=== PATIENT | female | born 1940 | race Caucasian/White ===

== ENCOUNTER → 2018-05-20 | Outpatient (CLI) | payer MEDICARE ==
[~2018-05-20] MED LIST: AMLODIPINE BESYL5 MG PO; BENAZEPRIL10 MG PO; LOVASTATIN20 MG PO; NEURONTIN300 MG PO; NEURONTIN800 MG PO; PRILOSEC20 M1 PO; ZITHROMAX250 MG PO
== END | disposition home or self-care (01) ==
DX: M25.562 Pain in left knee (principal)

== ENCOUNTER → 2018-08-05 | Outpatient (CLI) | payer MEDICARE | END | disposition home or self-care (01) | LOC: ORTHO 02:18 | DX: M25.562 Pain in left knee (principal) ==

== ENCOUNTER 2019-04-19 21:50 | Emergency (ER) | payer MEDICARE ==
[~2019-04-19] VITALS: Wt 75.7 kg
[2019-04-19 21:51] VITALS: BP 209/97
[2019-04-19] MEDS ORDERED: AMOXICILLIN500 M2 PO (23:24)
== END 2019-04-19 23:34 | disposition home or self-care (01) ==
LOC: ED 21:50
DX: S50.861A Insect bite (nonvenomous) of right forearm, initial encounter (principal); Z98.890 Other specified postprocedural states; Z79.899 Other long term (current) drug therapy; Z88.6 Allergy status to analgesic agent; W57.XXXA Bitten or stung by nonvenomous insect and other nonvenomous arthropods, initial encounter; Y93.89 Activity, other specified; Y92.89 Other specified places as the place of occurrence of the external cause; Y99.9 Unspecified external cause status

== ENCOUNTER → 2019-05-13 | Day surgery (SDC) | payer MEDICARE ==
[~2019-05-13] VITALS: Ht 152.4 cm; Wt 76.2 kg
[~2019-05-13] MED LIST changes: +AMOXICILLIN500 M2 PO; +B121000 MCG/1 IM; +METFORMIN HYDR500 MG PO; +NORCO 5-325 TA1 EACH PO
[2019-05-13 09:59] VITALS: BP 106/49
[2019-05-13 10:23] VITALS: BP 122/59
[2019-05-13 10:38] VITALS: BP 143/60
[2019-05-13 10:53] VITALS: BP 150/52
== END | disposition home or self-care (01) ==
LOC: SDC 05-12 10:15
DX: C49.11 Malignant neoplasm of connective and soft tissue of right upper limb, including shoulder (principal); L98.8 Other specified disorders of the skin and subcutaneous tissue; I10 Essential (primary) hypertension; E11.9 Type 2 diabetes mellitus without complications; E78.5 Hyperlipidemia, unspecified; Z98.890 Other specified postprocedural states; Z79.899 Other long term (current) drug therapy; Z79.82 Long term (current) use of aspirin; Z82.49 Family history of ischemic heart disease and other diseases of the circulatory system; Z80.8 Family history of malignant neoplasm of other organs or systems

== ENCOUNTER → 2020-08-19 | Outpatient (CLI) | payer MEDICARE | END | disposition home or self-care (01) | LOC: RAD 08:40 | PROVIDERS: ATTEND Nurse Practitioner Family | DX: R05 Cough (principal); R10.13 Epigastric pain; E11.9 Type 2 diabetes mellitus without complications ==

== ENCOUNTER → 2020-11-21 | Outpatient (CLI) | payer MEDICARE | END | disposition home or self-care (01) | LOC: RAD 17:37 | PROVIDERS: ATTEND Nurse Practitioner Family | DX: M47.816 Spondylosis without myelopathy or radiculopathy, lumbar region (principal); M43.16 Spondylolisthesis, lumbar region; G95.89 Other specified diseases of spinal cord; M54.42 Lumbago with sciatica, left side; M25.78 Osteophyte, vertebrae; M25.552 Pain in left hip; I87.8 Other specified disorders of veins ==

== ENCOUNTER → 2021-06-04 | Outpatient (CLI) | payer MEDICARE | END | disposition home or self-care (01) | LOC: RAD 11:50 | PROVIDERS: ATTEND Nurse Practitioner Family | DX: U07.1 COVID-19 (principal) ==

== ENCOUNTER → 2021-11-19 | Day surgery (SDC) | payer MEDICARE ==
[~2021-11-19] VITALS: Ht 152.4 cm; Wt 69.4 kg
[~2021-11-19] MED LIST changes: +GABAPENTIN400 MG PO; +NEXIUM20 M1 PO; +PERCOCET 5-3251 EACH PO; +VITAMIN B121000 MC1 PO
[2021-11-19 06:48] VITALS: BP 145/54
[2021-11-19 07:50] VITALS: BP 137/55
[2021-11-19 08:05] VITALS: BP 155/58
[2021-11-19 08:20] VITALS: BP 136/61
== END | disposition home or self-care (01) ==
LOC: SDC 11-15 08:00
PROVIDERS: ATTEND Surgery
DX: L72.0 Epidermal cyst (principal); I10 Essential (primary) hypertension; E78.00 Pure hypercholesterolemia, unspecified; L92.8 Other granulomatous disorders of the skin and subcutaneous tissue; E11.9 Type 2 diabetes mellitus without complications; K21.9 Gastro-esophageal reflux disease without esophagitis; F41.9 Anxiety disorder, unspecified; Z98.890 Other specified postprocedural states

== ENCOUNTER 2021-12-17 18:50 | Inpatient (IN) | payer MEDICARE, SELFPAY ==
[~2021-12-17] VITALS: Ht 152.4 cm; Wt 72.3 kg
[2021-12-17 19:00] VITALS: BP 183/74
[2021-12-17 19:36] LABS: HEMATOCRIT 45.9 % (37.0-47.0); MEAN CELL VOLUME 88.3 fl (81.0-99.0); MEAN CORPUSCULAR HGB 27.9 pg (27.0-31.0); MEAN CORPUSCULAR HGB CONC 31.6 g/dl (33.0-37.0); MEAN PLATELET VOLUME 10.4 fl (9.6-12.3); PLATELET COUNT AUTOMATED 300 10*3/uL (130-400); RED CELL DISTRI WIDTH 14.6 % (0-14.5); WHITE BLOOD COUNT 11.9 10*3/uL (4.8-10.8)
[2021-12-17 19:38] LABS: MANUAL DIFF REFLEX YES
[2021-12-17 19:48] LABS: ACT PARTIAL THROMBO TIME 28.8 SECONDS (20.0-32.1); INTERNATIONAL NORM RATIO 0.9 (2.0-3.5)
[2021-12-17 19:55] LABS: ALKALINE PHOSPHATASE 113 U/L (45-117); BUN 11 mg/dl (7-24); CHLORIDE 106 mmol/L (98-107); CREATININE 0.77 mg/dL (0.55-1.02); LIPASE 85 U/L (73-393); POTASSIUM 3.7 mmol/L (3.5-5.1); SGOT/AST 14 IU/L (3-35); SGPT/ALT 20 U/L (12-78); SODIUM 137 mmol/L (136-145); TOTAL PROTEIN 7.8 gm/dL (6.4-8.2)
[2021-12-17 20:05] LABS: ATYPICAL LYMPHS 5 % (0-0); BASOPHILS 1 % (0-1); TOTAL CELLS COUNTED 100 #CELLS
[2021-12-17 20:06] LABS: PLATELET SUFFICIENCY NORMAL (NORMAL)
[2021-12-17 22:25] VITALS: BP 104/64
[2021-12-17 23:32] VITALS: BP 126/48
[2021-12-18] VITALS: BP 133/55
[2021-12-18 00:21] LABS: BILIRUBIN Negative (Negative); BLOOD Negative (Negative); CLARITY Clear (Clear); COLOR Yellow (Yellow); GLUCOSE Negative (Negative); KETONE Negative (Negative); LEUKO ESTERASE Negative (Negative); NITRITE Negative (Negative); PH 7.5 (4.5-8.0); UROBILINOGEN 0.2 E.U./dl (0.0-1.0)
[2021-12-18 00:31] LABS: RBC 0-2 rbc/hpf (0-2); WBC 0-2 wbc/hpf (0-5)
[2021-12-18 04:22] VITALS: BP 138/60
[2021-12-18 04:34] LABS: BASO # 0.1 10*3/uL (0.0-0.1); BASO % 0.6 % (0.0-1.0); EOS # 0.1 10*3/uL (0.0-0.4); EOS % 0.6 % (1.0-4.0); HEMATOCRIT 43.4 % (37.0-47.0); LYMPH # 4.5 10*3/uL (1.3-4.4); LYMPH % 44.3 % (27.0-41.0); MEAN CELL VOLUME 88.9 fl (81.0-99.0); MEAN CORPUSCULAR HGB 28.7 pg (27.0-31.0); MEAN CORPUSCULAR HGB CONC 32.3 g/dl (33.0-37.0); MEAN PLATELET VOLUME 10.3 fl (9.6-12.3); MONO # 0.6 10*3/uL (0.1-1.0); MONO % 6.3 % (3.0-9.0); NEUT # 4.8 10*3/uL (2.3-7.9); NEUT % 47.9 % (47.0-73.0); PLATELET COUNT AUTOMATED 280 10*3/uL (130-400); RED BLOOD COUNT 4.88 10*6/uL (4.10-5.10); RED CELL DISTRI WIDTH 14.7 % (0-14.5); WHITE BLOOD COUNT 10.1 10*3/uL (4.8-10.8)
[2021-12-18 04:54] LABS: ALKALINE PHOSPHATASE 89 U/L (45-117); BUN 9 mg/dl (7-24); CHLORIDE 108 mmol/L (98-107); CHOLESTEROL 133 mg/dL (<200); CREATININE 0.71 mg/dL (0.55-1.02); POTASSIUM 4.2 mmol/L (3.5-5.1); SGOT/AST 15 IU/L (3-35); SGPT/ALT 16 U/L (12-78); SODIUM 143 mmol/L (136-145); TOTAL PROTEIN 7.2 gm/dL (6.4-8.2); TRIGLYCERIDES 113 mg/dl (<150)
[2021-12-18 04:55] LABS: LDL CHOLESTEROL 51 mg/dL (9-159)
[2021-12-18 07:33] LABS: VITAMIN D, 25-HYDROXY 21.7 ng/mL (30-100)
[2021-12-18 08:00] VITALS: BP 159/43
[2021-12-18 12:00] VITALS: BP 171/50
[2021-12-18 16:00] VITALS: BP 158/63
[2021-12-18 20:00] VITALS: BP 129/65
[2021-12-19] VITALS: BP 130/53
[2021-12-19 08:00] VITALS: BP 178/58
[2021-12-19 10:37] VITALS: BP 156/53
[2021-12-19] MEDS ORDERED: ATORVASTATIN CA40 M1 PO (11:52)
[2021-12-19] MEDS ORDERED: BENAZEPRIL20 MG PO (11:52)
[2021-12-19] MEDS ORDERED: ASPIRIN ADULT L81 M2 PO (11:52)
[2021-12-19 12:00] VITALS: BP 153/53
== END 2021-12-19 14:27 | disposition home or self-care (01) | DRG 69 ==
LOC: ED 18:50 → EDHOLD 20:16 → 4E 20:16 → EDHOLD 21:00 → 4E 23:40
PROVIDERS: Emergency Medicine; Internal Medicine; ADMIT Internal Medicine; ATTEND Internal Medicine
DX: G45.9 Transient cerebral ischemic attack, unspecified (principal); E87.2 Acidosis; E44.0 Moderate protein-calorie malnutrition; E83.41 Hypermagnesemia; G51.31 Clonic hemifacial spasm, right; I10 Essential (primary) hypertension; E78.5 Hyperlipidemia, unspecified; D72.829 Elevated white blood cell count, unspecified; E11.65 Type 2 diabetes mellitus with hyperglycemia; Z90.710 Acquired absence of both cervix and uterus; Z82.49 Family history of ischemic heart disease and other diseases of the circulatory system; Z80.0 Family history of malignant neoplasm of digestive organs; Z82.3 Family history of stroke; Z68.31 Body mass index [BMI] 31.0-31.9, adult; R29.704 NIHSS score 4

== ENCOUNTER → 2022-06-13 | Outpatient (CLI) | payer MEDICARE ==
[~2022-06-13] MED LIST changes: +ASPIRIN ADULT L81 M2 PO; +ATORVASTATIN CA40 M1 PO; +BENAZEPRIL20 MG PO
== END | disposition home or self-care (01) ==
LOC: MAMMO 03:22
PROVIDERS: ATTEND Nurse Practitioner Family
DX: Z12.31 Encounter for screening mammogram for malignant neoplasm of breast (principal)

== ENCOUNTER → 2022-09-24 | Outpatient (CLI) | payer MEDICARE ==
[2022-09-24 07:55] LABS: BASO # 0.1 10*3/uL (0.0-0.1); BASO % 0.6 % (0.0-1.0); EOS # 0.1 10*3/uL (0.0-0.4); EOS % 1.3 % (1.0-4.0); HEMATOCRIT 44.7 % (37.0-47.0); LYMPH # 4.5 10*3/uL (1.3-4.4); LYMPH % 43.4 % (27.0-41.0); MEAN CELL VOLUME 90.5 fl (81.0-99.0); MEAN CORPUSCULAR HGB 28.5 pg (27.0-31.0); MEAN CORPUSCULAR HGB CONC 31.5 g/dl (33.0-37.0); MEAN PLATELET VOLUME 10.1 fl (9.6-12.3); MONO # 0.6 10*3/uL (0.1-1.0); MONO % 6.1 % (3.0-9.0); NEUT % 48.4 % (47.0-73.0); PLATELET COUNT AUTOMATED 282 10*3/uL (130-400); RED BLOOD COUNT 4.94 10*6/uL (4.10-5.10); RED CELL DISTRI WIDTH 14.7 % (0-14.5); WHITE BLOOD COUNT 10.3 10*3/uL (4.8-10.8)
[2022-09-24 08:24] LABS: ALKALINE PHOSPHATASE 93 U/L (46-116); BUN 10 mg/dl (9-23); CHLORIDE 103 mmol/L (98-107); CHOLESTEROL 113 mg/dL (<200); LDL CHOLESTEROL 50 mg/dL (9-159); POTASSIUM 4.5 mmol/L (3.4-5.1); SGPT/ALT 21 U/L (10-49); TOTAL PROTEIN 7.4 gm/dL (6.0-8.0); TRIGLYCERIDES 66 mg/dl (<150)
== END ==
LOC: LAB 07:36
PROVIDERS: ATTEND Nurse Practitioner Family
DX: I10 Essential (primary) hypertension (principal); E11.9 Type 2 diabetes mellitus without complications; E78.5 Hyperlipidemia, unspecified; R10.13 Epigastric pain; F95.9 Tic disorder, unspecified; Z86.73 Personal history of transient ischemic attack (TIA), and cerebral infarction without residual deficits; Z79.899 Other long term (current) drug therapy

== ENCOUNTER → 2023-09-05 | Outpatient (CLI) | payer MEDICARE | LOC: ORTHO 00:46 | PROVIDERS: ATTEND Orthopaedic Surgery | DX: M17.0 Bilateral primary osteoarthritis of knee (principal); M25.561 Pain in right knee ==

== ENCOUNTER → 2023-10-23 | Outpatient (CLI) | payer MEDICARE | END | disposition home or self-care (01) | LOC: RESCLI 01:50 | PROVIDERS: ATTEND Internal Medicine | DX: I10 Essential (primary) hypertension (principal); E11.9 Type 2 diabetes mellitus without complications; Z00.00 Encounter for general adult medical examination without abnormal findings; F95.9 Tic disorder, unspecified; E78.5 Hyperlipidemia, unspecified; K21.9 Gastro-esophageal reflux disease without esophagitis; K59.00 Constipation, unspecified; M25.561 Pain in right knee; Z79.899 Other long term (current) drug therapy; Z88.8 Allergy status to other drugs, medicaments and biological substances; Z98.890 Other specified postprocedural states ==